=== PATIENT | female | born 1985 | race Caucasian/White ===

== ENCOUNTER 2016-03-16 12:24 | Emergency (ER) | payer MEDICAID, OTHER ==
--- NOTE | 2016-03-16 13:14 | ER Document Report ---
ED Medical Screen (RME) - General Chief Complaint: Anxiety Stated Complaint: DIZZY,HEART BEATING FAST Notes: 30 yo female with hx/o anxeity, IDDM with insulin pump, c/o funny feeling, vibrating in chest, not flashes, dizziness, increased heart rate. chest just feels funny. pt takes zoloft, xanax, vistaril, propanalol for anxiety. TRAVEL OUTSIDE OF THE [place] IN LAST 30 DAYS: No - Related Data Allergies/Adverse Reactions: Prostaglandins E1 Adverse Reaction (Intermediate, Verified 03/16/16 12:55) Generalized rash Prostaglandins E2 Adverse Reaction (Intermediate, Verified 03/16/16 12:55) Generalized rash Prostaglandins F2a Adverse Reaction (Intermediate, Verified 03/16/16 12:55) Generalized rash Sulfa (Sulfonamide Antibiotics) Adverse Reaction (Intermediate, Verified 12:55) Generalized rash sulfamethoxazole [From Bactrim] Adverse Reaction (Intermediate, Verified 12:55) Generalized rash trimethoprim [From Bactrim] Adverse Reaction (Intermediate, Verified 03/16/16 12 :55) Generalized rash Past Medical History - Social History Chew tobacco use (# tins/day): No Frequency of alcohol use: None Drug Abuse: None - Past Medical History Cardiac Medical History: Reports: Hx Hypercholesterolemia, Hx Hypertension Endocrine Medical History: Reports: Hx Diabetes Mellitus Type 1 Musculoskeltal Medical History: Reports Hx Arthritis Psychiatric Medical History: Reports: Hx Anxiety, Hx Depression Past Surgical History: Reports: Hx Adenoidectomy, Hx Oral Surgery, Hx Tonsillectomy - Immunizations Immunizations up to date: Yes Hx Diphtheria, Pertussis, Tetanus Vaccination: Yes Physical Exam - Vital signs Vitals: Temp Pulse Resp BP Pulse Ox 98.4 F 81 20 117/80 100 03/16/16 12:54 03/16/16 12:54 03/16/16 12:54 03/16/16 12:54 03/16/16 12:54 Course - Vital Signs Vital signs: Temp Pulse Resp BP Pulse Ox 98.4 F 81 20 117/80 100 03/16/16 12:54 03/16/16 12:54 03/16/16 12:54 03/16/16 12:54 03/16/16 12:54 Doctor's Discharge - Discharge Instructions: Anxiety ([facility])
[2016-03-16 13:45] LABS: ABSOLUTE BASOPHILS # (AUTO) 0.1 10^3/uL (0.0-0.2); ABSOLUTE EOSINOPHILS # (AUTO) 0.4 10^3/uL (0.0-0.6); ABSOLUTE LYMPHOCYTES (AUTO) 3.2 10^3/uL (0.5-4.7); ABSOLUTE MONOCYTES (AUTO) 0.6 10^3/uL (0.1-1.4); ABSOLUTE NEUT (AUTO) 4.3 10^3/uL (1.7-8.2); EOSINOPHILS % (AUTO) 4.2 % (0-6); HEMATOCRIT 42.5 % (36.0-47.0); HEMOGLOBIN 14.2 g/dL (12.0-15.5); HGB HCT DIFFERENCE 0.1; LYMPHOCYTES % (AUTO) 37.3 % (13-45); MEAN CORPUSCULAR HEMOGLOBIN 25.3 pg (27.0-33.4); MEAN CORPUSCULAR HGB CONC 33.4 g/dL (32.0-36.0); MEAN CORPUSCULAR VOLUME 76 fl (80-97); MONOCYTES % (AUTO) 7.3 % (3-13); RED BLOOD COUNT 5.61 10^6/uL (3.72-5.28); SEGMENTED NEUTROPHILS % (AUTO) 50.2 % (42-78); WHITE BLOOD COUNT 8.5 10^3/uL (4.0-10.5)
[2016-03-16 13:52] LABS: APPEARANCE,URINE CLEAR; BILIRUBIN,URINE NEGATIVE (NEGATIVE); GLUCOSE, URINE >=500 mg/dL (NEGATIVE); KETONES,URINE NEGATIVE (NEGATIVE); LEUKOCYTE ESTERASE,URINE NEGATIVE (NEGATIVE); NITRITE,URINE NEGATIVE (NEGATIVE); PROTEIN,URINE NEGATIVE (NEGATIVE); URINE SPECIFIC GRAVITY 1.011; UROBILINOGEN,URINE NEGATIVE mg/dL (<2.0)
[2016-03-16 14:12] LABS: ALANINE AMINOTRANSFERASE 32 U/L (9-52); ALKALINE PHOSPHATASE 63 U/L (38-126); ANION GAP 9 (5-19); ASPARTATE AMINO TRANSFERASE 19 U/L (14-36); BILIRUBIN,TOTAL 0.4 mg/dL (0.2-1.3); BLOOD UREA NITROGEN 20 mg/dL (7-20); CALCIUM 9.3 mg/dL (8.4-10.2); CARBON DIOXIDE 25 mmol/L (22-30); CHLORIDE 99 mmol/L (98-107); CREATININE RESULT 0.66 mg/dL (0.52-1.25); GLUCOSE 295 mg/dL (75-110); POTASSIUM 4.8 mmol/L (3.6-5.0); SODIUM 132.7 mmol/L (137-145); TOTAL PROTEIN 6.5 g/dL (6.3-8.2)
[2016-03-16] MEDS ORDERED: ALBUTEROL SULFATE 0.083% NEB 2.5 MG/3 ML AMPUL NEB ONE (15:42)
--- NOTE | 2016-03-16 15:43 | EKG REPORT ---
SEVERITY:- NORMAL ECG - SINUS RHYTHM : Confirmed by: Kim Clemons 16-Mar-2016 15:42:56
[2016-03-16 16:22] LABS: CREATINE KINASE MB 0.53 ng/mL (<4.55); TROPONIN I < 0.012 ng/mL
--- NOTE | 2016-03-16 16:39 | ER Document Report ---
ED General - General Chief Complaint: Anxiety Stated Complaint: DIZZY,HEART BEATING FAST Time seen by provider: 16:00 Mode of Arrival: Ambulatory Information source: Patient Notes: 30 yo diabetic hx anxiety female c/o multiple symptoms but the one that brought her in was the pulsating/rattling left periscapular back pain that radiated around her body to the left chest (not thgough her body) It began about 11 am after taekwondo this am. Under alot of strwaa because she is going through divorce. Also c/o head congestion, jitters, thinks she may be has chest congestion. TRAVEL OUTSIDE OF THE [place] IN LAST 30 DAYS: No - HPI Onset: This morning Onset/Duration: Sudden - Related Data Allergies/Adverse Reactions: Prostaglandins E1 Adverse Reaction (Intermediate, Verified 03/16/16 12:55) Generalized rash Prostaglandins E2 Adverse Reaction (Intermediate, Verified 03/16/16 12:55) Generalized rash Prostaglandins F2a Adverse Reaction (Intermediate, Verified 03/16/16 12:55) Generalized rash Sulfa (Sulfonamide Antibiotics) Adverse Reaction (Intermediate, Verified 12:55) Generalized rash sulfamethoxazole [From Bactrim] Adverse Reaction (Intermediate, Verified 12:55) Generalized rash trimethoprim [From Bactrim] Adverse Reaction (Intermediate, Verified 03/16/16 12 :55) Generalized rash Past Medical History - General Information source: Patient - Social History Smoking Status: Current Every Day Smoker Chew tobacco use (# tins/day): No Frequency of alcohol use: None Drug Abuse: None Lives with: Family Family History: DM, Hyperlipidemia, Hypertension, Malignancy, Thyroid Disfunction Patient has suicidal ideation: No Patient has homicidal ideation: No - Past Medical History Cardiac Medical History: Reports: Hx Hypercholesterolemia, Hx Hypertension Endocrine Medical History: Reports: Hx Diabetes Mellitus Type 1 Musculoskeltal Medical History: Reports Hx Arthritis Psychiatric Medical History: Reports: Hx Anxiety, Hx Depression Past Surgical History: Reports: Hx Adenoidectomy, Hx Oral Surgery, Hx Tonsillectomy - Immunizations Immunizations up to date: Yes Hx Diphtheria, Pertussis, Tetanus Vaccination: Yes Review of Systems - Review of Systems Constitutional: No symptoms reported EENT: See HPI Cardiovascular: No symptoms reported Respiratory: See HPI Gastrointestinal: No symptoms reported Genitourinary: No symptoms reported Female Genitourinary: No symptoms reported Musculoskeletal: No symptoms reported Skin: No symptoms reported Hematologic/Lymphatic: No symptoms reported Neurological/Psychological: No symptoms reported Physical Exam - Vital signs Vitals: Temp Pulse Resp BP Pulse Ox 98.4 F 81 20 117/80 100 03/16/16 12:54 03/16/16 12:54 03/16/16 12:54 03/16/16 12:54 03/16/16 12:54 Interpretation: Normal - General General appearance: Appears well, Alert, Anxious In distress: None - HEENT Head: Normocephalic, Atraumatic Eyes: Normal Pupils: PERRL Tympanic membrane: Normal Pharynx: Normal Neck: Supple. No: Lymphadenopathy - Respiratory Respiratory status: No respiratory distress Chest status: Nontender Breath sounds: Normal Chest palpation: Normal - Cardiovascular Rhythm: Regular Heart sounds: Normal auscultation Murmur: No - Abdominal Inspection: Normal Distension: No distension Bowel sounds: Normal Tenderness: Nontender Organomegaly: No organomegaly - Back Back: Normal, Tender - left periscapular muscles. No: CVA tenderness - Extremities General upper extremity: Normal inspection, Nontender, Normal color, Normal ROM , Normal temperature General lower extremity: Normal inspection, Nontender, Normal color, Normal ROM , Normal temperature, Normal weight bearing. No: Buster's sign - Neurological Neuro grossly intact: Yes Cognition: Normal Orientation: AAOx4 [place] Coma Scale Eye Opening: Spontaneous Wendy Coma Scale Verbal: Oriented Wendy Coma Scale Motor: Obeys Commands Wendy Coma Scale Total: 15 Speech: Normal Motor strength normal: LUE, RUE, LLE, RLE Sensory: Normal - Psychological Associated symptoms: Normal affect, Normal mood - Skin Skin Temperature: Warm Skin Moisture: Dry Skin Color: Normal Skin irregularity: negative: Rash Course - Re-evaluation Re-evalutation: 03/16/16 16:33 Blood and urine is due to menses, chest x-ray is negative, EKG normal sinus rhythm, glucose is 295 but she took insulin so she checked it and it is coming down, CBC is normal 03/16/16 16:34 Patient is asking for a albuterol metered-dose inhaler prescription. thinks that it may help. alb neb ordered which is already helping. - Vital Signs Vital signs: Temp Pulse Resp BP Pulse Ox 97.8 F 75 16 100/75 100 03/16/16 16:59 03/16/16 16:59 03/16/16 16:59 03/16/16 16:59 03/16/16 16:59 - Laboratory Result Diagrams: 03/16/16 13:15 03/16/16 13:15 Laboratory results interpreted by me: 03/16/16 03/16/16 03/16/16 13:15 13:15 13:20 RBC 5.61 H MCV 76 L MCH 25.3 L Sodium 132.7 L Glucose 295 H Urine Glucose (UA) >=500 H Urine Blood LARGE H Discharge - Discharge Clinical Impression: Bronchitis, Anxiety, Upper back pain on left side Diabetes Qualifiers: Diabetes mellitus type: type 1 Diabetes mellitus complication status: without complication Qualified Code(s): E10.9 - Type 1 diabetes mellitus without complications Condition: Good Disposition: HOME, SELF-CARE Instructions: Anxiety ([facility]), Bronchitis ([facility]), Inhaled Bronchodilators ([facility]) Additional Instructions: to er if worse Monitor your glucose carefully Prescriptions: Albuterol Sulfate [Proair HFA Inhalation Aerosol 8.5 gm MDI] 2 puff IH Q3HP PRN #1 [email or web address] PRN Reason: Forms: Return to Work Referrals: ANGELA GREEN MD [Primary Care Provider] - Follow up as needed
[2016-03-16 17:01] VITALS: BP 100/75
== END 2016-03-16 17:00 | disposition home or self-care (01) ==
LOC: ER 12:24
DX: J40 Bronchitis, not specified as acute or chronic (principal); M54.89 Other dorsalgia; E10.9 Type 1 diabetes mellitus without complications; F41.9 Anxiety disorder, unspecified; R42 Dizziness and giddiness; I10 Essential (primary) hypertension; E78.00 Pure hypercholesterolemia, unspecified; Z88.2 Allergy status to sulfonamides; Z88.3 Allergy status to other anti-infective agents
CPT/HCPCS: 36415; 71020; 80053; 81001; 82550; 82553; 84484; 85025; 93005; 93010; 94640; 99284

== ENCOUNTER 2016-03-23 06:17 | Emergency (ER) | payer MEDICAID ==
--- NOTE | 2016-03-23 08:41 | ER Document Report ---
ED General - General Mode of Arrival: Ambulatory Information source: Patient Notes: 30-year-old female presents with complaints of muscle aches of 5 day duration. Patient notes it stems from her neck goes down bilateral arms. Denies any neurological deficits except for a numbness sensation and pain. Patient denies any trauma. Patient is here because her son had any earaches morning Patient has been taking naproxen over the past 5 days with minimal relief TRAVEL OUTSIDE OF THE [place] IN LAST 30 DAYS: No - HPI Onset: Last week Onset/Duration: Persistent Quality of pain: Achy Severity: Mild Pain Level: 1 Associated symptoms: Body/muscle aches Exacerbated by: Movement Relieved by: Denies Similar symptoms previously: No Recently seen / treated by doctor: No - Related Data Allergies/Adverse Reactions: Prostaglandins E1 Adverse Reaction (Intermediate, Verified 03/16/16 12:55) Generalized rash Prostaglandins E2 Adverse Reaction (Intermediate, Verified 03/16/16 12:55) Generalized rash Prostaglandins F2a Adverse Reaction (Intermediate, Verified 03/16/16 12:55) Generalized rash Sulfa (Sulfonamide Antibiotics) Adverse Reaction (Intermediate, Verified 12:55) Generalized rash sulfamethoxazole [From Bactrim] Adverse Reaction (Intermediate, Verified 12:55) Generalized rash trimethoprim [From Bactrim] Adverse Reaction (Intermediate, Verified 03/16/16 12 :55) Generalized rash Past Medical History - Social History Smoking Status: Never Smoker Cigarette use (# per day): No Chew tobacco use (# tins/day): No Smoking Education Provided: No Family History: DM, Hyperlipidemia, Hypertension, Malignancy, Thyroid Disfunction - Past Medical History Cardiac Medical History: Reports: Hx Hypercholesterolemia, Hx Hypertension Endocrine Medical History: Reports: Hx Diabetes Mellitus Type 1 Musculoskeltal Medical History: Reports Hx Arthritis Psychiatric Medical History: Reports: Hx Anxiety, Hx Depression Past Surgical History: Reports: Hx Adenoidectomy, Hx Oral Surgery, Hx Tonsillectomy - Immunizations Immunizations up to date: Yes Hx Diphtheria, Pertussis, Tetanus Vaccination: Yes Review of Systems - Review of Systems Notes: REVIEW OF SYSTEMS: CONSTITUTIONAL : Denies fever, chills, or sweats. Denies recent illness. EENT: Denies eye, ear, throat, or mouth pain or symptoms. Denies nasal or sinus congestion or discharge. Denies throat, tongue, or mouth swelling or difficulty swallowing. CARDIOVASCULAR: Denies chest pain. Denies palpitations or racing or irregular heart beat. Denies ankle edema. RESPIRATORY: Denies cough, cold, or chest congestion. Denies shortness of breath, difficulty breathing, or wheezing. GASTROINTESTINAL: Denies abdominal pain or distention. Denies nausea, vomiting , or diarrhea. Denies blood in vomitus, stools, or per rectum. Denies black, tarry stools. Denies constipation. GENITOURINARY: Denies difficulty urinating, painful urination, burning, frequency, blood in urine, or discharge. FEMALE GENITOURINARY: Denies vaginal bleeding, heavy or abnormal periods, irregular periods. Denies vaginal discharge or odor. MUSCULOSKELETAL: Admits to back pain SKIN: Denies rash, lesions or sores. HEMATOLOGIC : Denies easy bruising or bleeding. LYMPHATIC: Denies swollen, enlarged glands. NEUROLOGICAL: Denies confusion or altered mental status. Denies passing out or loss of consciousness. Denies dizziness or lightheadedness. Denies headache. Denies weakness or paralysis or loss of use of either side. Denies problems with gait or speech. Denies sensory loss, numbness, or tingling. Denies seizures. PSYCHIATRIC: Denies anxiety or stress. Denies depression, suicidal ideation, or homicidal ideation. ALL OTHER SYSTEMS REVIEWED AND NEGATIVE. Dictation was performed using [employer] voice recognition software PHYSICAL EXAMINATION: GENERAL: Well-appearing, well-nourished and in no acute distress. HEAD: Atraumatic, normocephalic. EYES: Pupils equal round and reactive to light, extraocular movements intact, conjunctiva are normal. ENT: Nares patent, oropharynx clear without exudates. Moist mucous membranes. NECK: Normal range of motion, supple without lymphadenopathy LUNGS: Breath sounds clear to auscultation bilaterally and equal. No wheezes rales or rhonchi. HEART: Regular rate and rhythm without murmurs ABDOMEN: Soft, nontender, nondistended abdomen. No guarding, no rebound. No masses appreciated. Female : deferred Musculoskeletal: Tenderness on palpation of the cervical region, no midline tenderness. No numbness noted no weakness noted NEUROLOGICAL: Cranial nerves grossly intact. Normal speech, normal gait. Normal sensory, motor exams PSYCH: Normal mood, normal affect. SKIN: Warm, Dry, normal turgor, no rashes or lesions noted. Course - Re-evaluation Re-evalutation: 03/23/16 08:40 Patient will be treated with steroids, has been instructed on the use of it with her diabetes. Patient is otherwise stable for discharge After performing a Medical Screening Examination, I estimate there is LOW risk for INTRACRANIAL HEMORRHAGE, UNSTABLE SPINE FRACTURE, CENTRAL CORD SYNDROME, CAUDA EQUINA, THORACIC AORTIC DISSECTION, PNEUMOTHORAX, PERFORATED BOWEL, RUPTURED ABDOMINAL AORTIC ANEURYSM, ACUTE TENDON RUPTURE, COMPARTMENT SYNDROME, or OPEN FRACTURE, thus I consider the discharge disposition reasonable. Also, there is no evidence or peritonitis, sepsis, or toxicity. The patient and I have discussed the diagnosis and risks, and we agree with discharging home to follow-up with their primary doctor with the understanding that symptoms and presentations can change. We also discussed returning to the Emergency Department immediately if new or worsening symptoms occur. We have discussed the symptoms which are most concerning (e.g., bloody stool, fever, changing or worsening pain, vomiting) that necessitate immediate return. Discharge - Discharge Clinical Impression: Strain of neck muscle Qualifiers: Encounter type: initial encounter Qualified Code(s): S16.1XXA - Strain of muscle, fascia and tendon at neck level, initial encounter Pain of upper extremity Qualifiers: Laterality: bilateral Qualified Code(s): M79.601 - Pain in right arm; M79.602 - Pain in left arm Condition: Stable Disposition: HOME, SELF-CARE Additional Instructions: Patient was discharged on paper charting given follow with primary care physician and steroids pressure to return precautions provided
== END 2016-03-23 07:30 | disposition home or self-care (01) ==
LOC: ER 06:17
DX: S16.1XXA Strain of muscle, fascia and tendon at neck level, initial encounter (principal); X58.XXXA Exposure to other specified factors, initial encounter; M79.1 Myalgia; M54.9 Dorsalgia, unspecified; R20.0 Anesthesia of skin; I10 Essential (primary) hypertension; E10.9 Type 1 diabetes mellitus without complications
CPT/HCPCS: 99283

== ENCOUNTER 2016-04-04 10:42 | Emergency (ER) | payer MEDICAID ==
--- NOTE | 2016-04-04 11:05 | ER Document Report ---
ED Medical Screen (RME) - General Chief Complaint: Cold Symptoms Stated Complaint: FEVER Time seen by provider: 11:03 Mode of Arrival: Ambulatory Information source: Patient Notes: 30-year-old female presents to ED for cough, congestion, headache fever, body aches, and nausea with hot and cold flashes for 3 days her doctor could not get her in today is the reason she came in this morning. Type I diabetic Last menstrual period 03/15/2016 I have greeted and performed a rapid initial assessment of this patient. A comprehensive ED assessment and evaluation of the patient, analysis of test results and completion of medical decision making process will be conducted by an additional ED providers. TRAVEL OUTSIDE OF THE [place] IN LAST 30 DAYS: No - Related Data Allergies/Adverse Reactions: Prostaglandins E1 Adverse Reaction (Intermediate, Verified 03/16/16 12:55) Generalized rash Prostaglandins E2 Adverse Reaction (Intermediate, Verified 03/16/16 12:55) Generalized rash Prostaglandins F2a Adverse Reaction (Intermediate, Verified 03/16/16 12:55) Generalized rash Sulfa (Sulfonamide Antibiotics) Adverse Reaction (Intermediate, Verified 12:55) Generalized rash sulfamethoxazole [From Bactrim] Adverse Reaction (Intermediate, Verified 12:55) Generalized rash trimethoprim [From Bactrim] Adverse Reaction (Intermediate, Verified 03/16/16 12 :55) Generalized rash Past Medical History - Past Medical History Cardiac Medical History: Reports: Hx Hypercholesterolemia, Hx Hypertension Endocrine Medical History: Reports: Hx Diabetes Mellitus Type 1 Musculoskeltal Medical History: Reports Hx Arthritis Psychiatric Medical History: Reports: Hx Anxiety, Hx Depression Past Surgical History: Reports: Hx Adenoidectomy, Hx Oral Surgery, Hx Tonsillectomy - Immunizations Immunizations up to date: Yes Hx Diphtheria, Pertussis, Tetanus Vaccination: Yes
[2016-04-04] MEDS ORDERED: ONDANSETRON 4 MG TAB.RAPDIS PO ONE (11:09)
[2016-04-04 11:48] LABS: ABSOLUTE BASOPHILS # (AUTO) 0.1 10^3/uL (0.0-0.2); ABSOLUTE EOSINOPHILS # (AUTO) 0.4 10^3/uL (0.0-0.6); ABSOLUTE LYMPHOCYTES (AUTO) 2.7 10^3/uL (0.5-4.7); ABSOLUTE MONOCYTES (AUTO) 0.4 10^3/uL (0.1-1.4); ABSOLUTE NEUT (AUTO) 3.7 10^3/uL (1.7-8.2); BASOPHILS % (AUTO) 0.7 % (0-2); EOSINOPHILS % (AUTO) 5.6 % (0-6); HEMATOCRIT 42.9 % (36.0-47.0); HEMOGLOBIN 13.3 g/dL (12.0-15.5); LYMPHOCYTES % (AUTO) 37.1 % (13-45); MEAN CORPUSCULAR HEMOGLOBIN 24.5 pg (27.0-33.4); MEAN CORPUSCULAR VOLUME 79 fl (80-97); RED BLOOD COUNT 5.43 10^6/uL (3.72-5.28); RED CELL DISTRIBUTION WIDTH 14.6 % (11.5-14.0); SEGMENTED NEUTROPHILS % (AUTO) 50.6 % (42-78); WHITE BLOOD COUNT 7.2 10^3/uL (4.0-10.5)
[2016-04-04 11:51] LABS: APPEARANCE,URINE CLEAR; BILIRUBIN,URINE NEGATIVE (NEGATIVE); GLUCOSE, URINE >=500 mg/dL (NEGATIVE); KETONES,URINE NEGATIVE (NEGATIVE); LEUKOCYTE ESTERASE,URINE TRACE (NEGATIVE); NITRITE,URINE NEGATIVE (NEGATIVE); PROTEIN,URINE NEGATIVE (NEGATIVE); URINE SPECIFIC GRAVITY 1.024; UROBILINOGEN,URINE NEGATIVE mg/dL (<2.0)
[2016-04-04 12:12] LABS: ALANINE AMINOTRANSFERASE 24 U/L (9-52); ALKALINE PHOSPHATASE 78 U/L (38-126); ANION GAP 11 (5-19); ASPARTATE AMINO TRANSFERASE 17 U/L (14-36); BILIRUBIN,TOTAL 0.5 mg/dL (0.2-1.3); BLOOD UREA NITROGEN 13 mg/dL (7-20); CALCIUM 9.3 mg/dL (8.4-10.2); CARBON DIOXIDE 25 mmol/L (22-30); CHLORIDE 96 mmol/L (98-107); CREATININE RESULT 0.71 mg/dL (0.52-1.25); SODIUM 131.8 mmol/L (137-145); TOTAL PROTEIN 6.5 g/dL (6.3-8.2)
[2016-04-04] MEDS ORDERED: IBUPROFEN 800 MG TABLET PO ONE ×2 (12:14→13:08)
[2016-04-04 12:21] LABS: GLUCOSE 487 mg/dL (75-110)
[2016-04-04] MEDS ORDERED: ALBUTEROL SULFATE 0.083% NEB 2.5 MG/3 ML AMPUL NEB ONE (12:58)
[2016-04-04] MEDS ORDERED: DIPHENHYDRAMINE HCL 25 MG CAPSULE PO ONE (13:08)
[2016-04-04] MEDS ORDERED: METOCLOPRAMIDE HCL 10 MG TABLET PO ONE (13:08)
[2016-04-04] MEDS ORDERED: ALBUTEROL SULFATE HFA (90 MCG/PUFF) 8 GM MDI (1 MDI/ER DISP) IH ONE (13:08)
--- NOTE | 2016-04-04 13:24 | ER Document Report ---
ED Flu Like - General Chief Complaint: Flu Symptoms Stated Complaint: FEVER Mode of Arrival: Ambulatory Notes: Patient is a 30-year-old female presents emergency Department complaining of chest, nasal congestion with ear pressure, nonproductive cough for the past 5 days, fever and tension headache for the past 2 days. Generalized body aches. She hasn't been really taking anything [id number]. States she did that afebrile here at 97.8. Otherwise past medical history significant for type I diabetes. Social history significant for a 4 pack years TRAVEL OUTSIDE OF THE [place] IN LAST 30 DAYS: No - Related Data Allergies/Adverse Reactions: Prostaglandins E1 Adverse Reaction (Intermediate, Verified 03/16/16 12:55) Generalized rash Prostaglandins E2 Adverse Reaction (Intermediate, Verified 03/16/16 12:55) Generalized rash Prostaglandins F2a Adverse Reaction (Intermediate, Verified 03/16/16 12:55) Generalized rash Sulfa (Sulfonamide Antibiotics) Adverse Reaction (Intermediate, Verified 12:55) Generalized rash sulfamethoxazole [From Bactrim] Adverse Reaction (Intermediate, Verified 12:55) Generalized rash trimethoprim [From Bactrim] Adverse Reaction (Intermediate, Verified 03/16/16 12 :55) Generalized rash Past Medical History - General Information source: Patient - Social History Smoking Status: Current Every Day Smoker Family History: DM, Hyperlipidemia, Hypertension, Malignancy, Thyroid Disfunction Patient has suicidal ideation: No Patient has homicidal ideation: No - Past Medical History Cardiac Medical History: Reports: Hx Hypercholesterolemia, Hx Hypertension Endocrine Medical History: Reports: Hx Diabetes Mellitus Type 1 Renal/ Medical History: Denies: Hx Peritoneal Dialysis Musculoskeltal Medical History: Reports Hx Arthritis Psychiatric Medical History: Reports: Hx Anxiety, Hx Depression Past Surgical History: Reports: Hx Adenoidectomy, Hx Oral Surgery, Hx Tonsillectomy - Immunizations Immunizations up to date: Yes Hx Diphtheria, Pertussis, Tetanus Vaccination: Yes Review of Systems - Review of Systems Constitutional: See HPI EENT: See HPI Cardiovascular: See HPI Respiratory: See HPI Gastrointestinal: No symptoms reported Genitourinary: No symptoms reported Female Genitourinary: No symptoms reported Musculoskeletal: See HPI Skin: No symptoms reported Hematologic/Lymphatic: No symptoms reported Neurological/Psychological: No symptoms reported Physical Exam - Vital signs Vitals: Temp Pulse Resp BP Pulse Ox 97.8 F 99 20 133/83 H 96 04/04/16 11:02 04/04/16 11:02 04/04/16 11:02 04/04/16 11:02 04/04/16 11:02 - Notes Notes: PHYSICAL EXAM GENERAL: Alert, interacts well. HEAD: Normocephalic, atraumatic. EYES: Pupils equal, round, and reactive to light. Extraocular movements intact. ENT: Sinus pressure b/l. Oral mucosa moist, tongue midline. NECK: Full range of motion. Supple. Trachea midline. LUNGS: B/l wheezes without rales, or rhonchi. No respiratory distress. HEART: Regular rate and rhythm. No murmurs, gallops, or rubs. ABDOMEN: Soft, nondistended, nontender. No guarding, rebound, or rigidity.. Bowel sounds present in all 4 quadrants. EXTREMITIES: Moves all 4 extremities spontaneously. No edema, radial and dorsalis pedis pulses 2/4 bilaterally. No cyanosis. NEUROLOGICAL: Alert and oriented x3. Normal speech. PSYCH: Normal affect, normal mood. SKIN: Warm, dry, normal turgor. No rashes or lesions noted. Course - Re-evaluation Re-evalutation: 04/04/16 13:23 Patient is a 30-year-old female who is hemodynamically stable, no acute distress and afebrile. Patient does not have a history of asthma but given her recent cough likely acute bronchitis. We'll treat with albuterol here in manage her headache is by mouth medication. Upon reexamination, states her breathing and headache have improved. Wheezing has resolved. D/w patient to f/u with PCP in 1-2 PRN - Vital Signs Vital signs: Temp Pulse Resp BP Pulse Ox 97.8 F 99 20 133/83 H 96 04/04/16 11:02 04/04/16 11:02 04/04/16 11:56 04/04/16 11:02 04/04/16 11:02 - Laboratory Result Diagrams: 04/04/16 11:20 04/04/16 11:20 Laboratory results interpreted by me: 04/04/16 04/04/16 04/04/16 11:20 11:20 11:20 RBC 5.43 H MCV 79 L MCH 24.5 L MCHC 31.0 L RDW 14.6 H Sodium 131.8 L Chloride 96 L Glucose 487 H* Urine Glucose (UA) >=500 H Ur Leukocyte Esterase TRACE H Discharge - Discharge Clinical Impression: Bronchitis Headache Qualifiers: Headache type: tension-type Headache chronicity pattern: acute headache Intractability: intractable Qualified Code(s): G44.201 - Tension-type headache, unspecified, intractable Condition: Good Disposition: HOME, SELF-CARE Instructions: Acetaminophen Additional Instructions: Bronchitis with Bronchospasm (Wheezing) You have bronchitis with bronchospasm (wheezing). Sometimes people develop wheezing with a chest cold. This occurs either because of an underlying tendency toward asthma or because the virus itself irritates the bronchial tubes. This irritation causes cough, shortness of breath, and wheezing. Emergency treatment of bronchospasm may include adrenaline shots or bronchodilator aerosol. You may feel lightheaded and have a rapid pulse for an hour or two. Rest and get plenty of fluids. At home, we'll treat you with a bronchodilator inhaler. Corticosteroids may be required for some patients. Until you recover, avoid chemical fumes, dusts, pollens, and exercising in very cold or dry air. If you smoke, stop now! Most cases of bronchitis get better without antibiotics. We prescribe antibiotics when we believe bacteria are damaging your airways, or if there's high risk the bronchitis will worsen into pneumonia. Increase your fluid intake. A cool mist humidifier may make your lungs more comfortable. An expectorant (cough medicine that loosens phlegm) can help. Repeated episodes of bronchitis and bronchospasm may result in lung damage -- for example, chronic bronchitis, recurrent pneumonias, or emphysema. If you develop a fever, increased wheezing, chest pain, or severe shortness of breath, you should contact the doctor immediately. Prescriptions: Ondansetron HCl [Zofran 4 mg Tablet] 1 - 2 tab PO Q4HP PRN #15 tablet PRN Reason: Albuterol Sulfate [Ventolin HFA MDI 18 GM] 1 - 2 puff IH Q4H PRN #1 mdi PRN Reason: Forms: Return to Work Referrals: SANTOS TOMAS PA-C [Primary Care Provider] - Follow up as needed
[2016-04-04 14:29] VITALS: BP 127/84
== END 2016-04-04 14:25 | disposition home or self-care (01) ==
LOC: ER 10:42
DX: G44.201 Tension-type headache, unspecified, intractable (principal); J40 Bronchitis, not specified as acute or chronic; R50.9 Fever, unspecified; R09.81 Nasal congestion; R05 Cough; R51 Headache; F17.210 Nicotine dependence, cigarettes, uncomplicated
CPT/HCPCS: 99283; 36415; 82962; 84703; 85025; 80053; 81001; 83605; J3490 ×4; S0119

== ENCOUNTER → 2016-04-12 | Outpatient (CLI) | payer MEDICAID | LOC: OD 08:30 | PROVIDERS: ATTEND Physician Assistant | DX: M54.2 Cervicalgia (principal); M54.5 Low back pain | CPT/HCPCS: 72050; 72110 ==

== ENCOUNTER → 2016-06-02 | Outpatient (CLI) | payer MEDICAID | LOC: OD 09:31 | PROVIDERS: ATTEND Physician Assistant | DX: M79.644 Pain in right finger(s) (principal) ==

== ENCOUNTER 2016-11-18 16:17 | Emergency (ER) | payer MEDICAID ==
[2016-11-18] MEDS ORDERED: IBUPROFEN 800 MG TABLET PO ONE (17:19)
--- NOTE | 2016-11-18 17:24 | ER Document Report ---
ED General - General Chief Complaint: Back Pain Stated Complaint: PAIN IN BACK RIGHT ARM AND LEG Time Seen by Provider: 11/18/16 16:56 Mode of Arrival: Ambulatory Information source: Patient Notes: 31-year-old female presents to ED for complaint of lower back pain radiating down her legs 2 week. She states she has a history of degenerative disc days bulging disc and spondylosis. She also has a history of sciatica going down the right leg. She states she also has a history of carpal tunnel and a fracture to the right hand and May but when I look at the x-ray in the computer it is negative. She states that her MD found a fracture in the hand on the x-ray even though the x-ray was read as negative. She states she has nerve pain in her hand that goes up her arm and she called the orthopedic doctor and they said she needed to come to the emergency room to be sure there was no clot in her arm. She does smoke she is not on control and has not been on any trips and has not had no other injuries to the hand. TRAVEL OUTSIDE OF THE [place] IN LAST 30 DAYS: No - HPI Onset: Other - Patient has chronic pain to the arm, back, and leg Onset/Duration: Persistent Quality of pain: Sharp, Throbbing Severity: Moderate Pain Level: 4 Associated symptoms: Other - Chronic back pain with chronic sciatic pain. She states she also has chronic carpal tunnel pain. She states the pain in her hand is much worse today and she called the doctor and they told her she might have a clot she needed to come to the emergency room right away. Exacerbated by: Movement, Walking Relieved by: Denies Similar symptoms previously: Yes Recently seen / treated by doctor: Yes - Related Data Allergies/Adverse Reactions: Prostaglandins E1 Adverse Reaction (Intermediate, Verified 11/18/16 16:25) Generalized rash Prostaglandins E2 Adverse Reaction (Intermediate, Verified 11/18/16 16:25) Generalized rash Prostaglandins F2a Adverse Reaction (Intermediate, Verified 11/18/16 16:25) Generalized rash Sulfa (Sulfonamide Antibiotics) Adverse Reaction (Intermediate, Verified 16:25) Generalized rash sulfamethoxazole [From Bactrim] Adverse Reaction (Intermediate, Verified 16:25) Generalized rash trimethoprim [From Bactrim] Adverse Reaction (Intermediate, Verified 09/08/17 16 :25) Generalized rash Past Medical History - General Information source: Patient - Social History Smoking Status: Current Every Day Smoker Cigarette use (# per day): Yes - 5-10 cigarettes a day Chew tobacco use (# tins/day): No Smoking Education Provided: Yes - Less than 2 minutes Frequency of alcohol use: None Drug Abuse: None Occupation: Student Lives with: Friend Family History: DM, Hyperlipidemia, Hypertension, Malignancy, Thyroid Disfunction. denies: Arthritis, CAD, COPD, CVA Patient has suicidal ideation: No Patient has homicidal ideation: No - Past Medical History Cardiac Medical History: Reports: Hx Hypercholesterolemia Pulmonary Medical History: Reports: None EENT Medical History: Reports: None Neurological Medical History: Reports: None Endocrine Medical History: Reports: Hx Diabetes Mellitus Type 1 Renal/ Medical History: Reports: None Malignancy Medical History: Reports: None GI Medical History: Reports: None Musculoskeltal Medical History: Reports Hx Arthritis, Reports Hx Musculoskeletal Deformity - Degenerative disc sciatica chronic back pain spondylosis carpal tunnel, Reports Hx Musculoskeletal Trauma Skin Medical History: Reports None Psychiatric Medical History: Reports: Hx Anxiety, Hx Depression Traumatic Medical History: Reports: None Infectious Medical History: Reports: None Past Surgical History: Reports: Hx Adenoidectomy, Hx Gynecologic Surgery - E sure, Hx Oral Surgery - [place] teeth, Hx Tonsillectomy - Immunizations Immunizations up to date: Yes Hx Diphtheria, Pertussis, Tetanus Vaccination: Yes Review of Systems - Review of Systems Constitutional: No symptoms reported EENT: No symptoms reported Cardiovascular: No symptoms reported Respiratory: No symptoms reported Gastrointestinal: No symptoms reported Genitourinary: No symptoms reported Female Genitourinary: No symptoms reported Musculoskeletal: Back pain, Muscle pain, Muscle stiffness, Other - Right arm pain right wrist pain both of which are chronic. Patient states she went to the MD's office and they told her that she needed to have a Doppler done to rule out a DVT in her right arm Skin: No symptoms reported Hematologic/Lymphatic: No symptoms reported Neurological/Psychological: No symptoms reported -: Yes All other systems reviewed and negative Physical Exam - Vital signs Vitals: Temp Pulse Resp BP Pulse Ox 99.1 F 93 18 127/87 H 97 11/18/16 16:26 11/18/16 16:26 11/18/16 16:26 11/18/16 16:26 11/18/16 16:26 Interpretation: Normal - General General appearance: Appears well, Alert - HEENT Head: Normocephalic, Atraumatic Eyes: Normal Pupils: PERRL - Respiratory Respiratory status: No respiratory distress Chest status: Nontender Breath sounds: Normal Chest palpation: Normal - Cardiovascular Rhythm: Regular Heart sounds: Normal auscultation Murmur: No - Abdominal Inspection: Normal Distension: No distension Bowel sounds: Normal Tenderness: Nontender Organomegaly: No organomegaly - Back Back: Normal, Tender - paraspinal pain as well as bilateral lower back bilateral buttocks worse on the right radiating down the right leg. No: Deformity/step-off, CVA tenderness, Vertebra tenderness, Scars, Scoliosis, Wounds - Extremities General upper extremity: Normal inspection, Normal color, Normal ROM, Normal temperature General lower extremity: Normal inspection, Nontender, Normal color, Normal ROM , Normal temperature, Normal weight bearing. No: Buster's sign Shoulder: Tender. No: Deformity, Dislocation, Ecchymosis, Instability, Laceration, Limited ROM Arm: Tender. No: Abrasion, Deformity, Ecchymosis, Instability, Laceration Elbow: Tender. No: Abrasion, Deformity, Dislocation, Ecchymosis, Instability, Joint effusion, Laceration, Limited ROM, Swollen bursa Forearm: Tender. No: Abrasion, Deformity, Ecchymosis, Instability, Laceration Wrist: Tender. No: Abrasion, Axial load of thumb pain, Deformity, Dislocation, Ecchymosis, Instability, Laceration, Limited ROM, Navicular tenderness Hand: Tender, No evidence of human bite, No evidence of FB. No: Dislocation, Ecchymosis, Swelling, Tendon deficit - Neurological Neuro grossly intact: Yes Cognition: Normal Orientation: AAOx4 Wendy Coma Scale Eye Opening: Spontaneous Wendy Coma Scale Verbal: Oriented [place] Coma Scale Motor: Obeys Commands Wendy Coma Scale Total: 15 Speech: Normal Motor strength normal: LUE, RUE, LLE, RLE Sensory: Normal - Psychological Associated symptoms: Normal affect, Normal mood - Skin Skin Temperature: Warm Skin Moisture: Dry Skin Color: Normal Course - Re-evaluation Re-evalutation: 11/18/16 21:02 Discussed Doppler results with patient patient was treated with ibuprofen ice and Lidoderm patch. Patient was discharged home with a prescription for Flexeril. Patient states she has naproxen and ibuprofen at home and does not need a prescription for either. Patient was reinstructed on use of ice warm packs and back exercises to help with her chronic pain. Patient states she has a referral for pain management but has not gotten in to see them yet. Patient to follow-up with her primary doctor - Vital Signs Vital signs: Temp Pulse Resp BP Pulse Ox 99.1 F 93 18 127/87 H 97 11/18/16 16:26 11/18/16 16:26 11/18/16 16:26 11/18/16 16:26 11/18/16 16:26 - Diagnostic Test Radiology reviewed: Image reviewed, Reports reviewed Discharge - Discharge Clinical Impression: Chronic back pain greater than 3 months duration, Right arm pain Sciatica Qualifiers: Laterality: right Qualified Code(s): M54.31 - Sciatica, right side Condition: Stable Disposition: HOME, SELF-CARE Instructions: Stretching Exercises for the Back ([facility]) Additional Instructions: Chronic Pain Control Stress, inactivity, and depression make pain more severe regardless of the cause of the pain. Stress and poor physical condition can cause pain such as headaches and backache. Relaxation: Rest in a quiet place with your eyes closed for 20 minutes twice daily. Concentrate on a pleasant image, or simply "feel" your breathing. Clear your mind. Stress management: Deal with your "stressors." Either take action, or eliminate the stressor from your life. Don't let things hang over you. Accept those things you can't change. Nutrition: Eat small, balanced meals -- don't skip, don't overeat. Meals should be high-carbohydrate, low-sugar, low-fat. Exercise: Exercise helps painful conditions and eases stress. Get 30 minutes of moderate exercise, five days a week. Do an activity that does not flare your pain. Precautions: Pain which continues to disrupt daily activities, or which changes in nature, requires a medical evaluation. Pain Clinic referral is available. We do not manage chronic pain in the Emergency Department. We will try to appropriately help you through an acute flare of your chronic painful condition , but for on-going chronic pain that does not improve, you will need to see your private doctor or painting machine operator. We do not provide repeated medication management of chronic painful conditions. If you wish, we can provide the name of local pain management physicians. Chronic Back Pain Chronic back pain (pain persisting longer than three months) is a common problem. A medical evaluation can look for herniated disc, arthritis, osteoporosis, tumors, and infections. But at least half the time, there's no obvious treatable cause. Anxiety and depression tend to worsen back pain. Ibuprofen or other anti-inflammatory medicine can help. A heating pad, used for 15-20 minutes at a time, can ease pain. For this type of back pain, narcotic medicines should be avoided. Muscle relaxers are rarely helpful unless you're having spasms. Activity is important. Find an aerobic exercise program that your back can tolerate. Too much rest makes back pain worse. Specific back exercises are usually prescribed to strengthen the back and abdominal muscles. Often, a physical therapist can help. Avoid heavy lifting, working while bent over, or standing with both knees straight. Most back pain patients do better with a firm mattress. If new symptoms of a "herniated disc" (radiation of pain, numbness, or tingling down the back of the leg or weakness in the leg) occur, you should be re-examined. Ibuprofen Ibuprofen is an excellent, safe drug for pain control. In addition, it has potent antiinflammatory effects which are beneficial, especially in the treatment of injuries, arthritis, or tendonitis. It's best to take ibuprofen with food. Persons with ulcer disease or allergy to aspirin should notify their physician of this before taking ibuprofen. Take the medication exactly as prescribed. Don't take additional doses unless instructed to do so by your doctor. If you develop wheezing, shortness of breath, hives, faintness, stomach pain, vomiting, or dark black stools, return for re-evaluation at once. Ice Packs Apply ice packs frequently against the painful area. Many different schedules are recommended, such as "20 minutes on, 20 minutes off" or "one hour ice, two hours rest." If you need to work, you may need to go longer between ice treatments. You should plan to have the area ice packed AT LEAST one fourth of the time. The ice should be applied over the wrap, tape, or splint, or over a layer of cloth -- not directly against the skin. Some ice bags have a built-in cloth and can be put directly on the skin. Muscle Relaxers Muscle relaxing medications are usually prescribed for acute muscle spasm or injury to the neck and back. They are often combined with antiinflammatory pain medication for increased relief. You may stop the muscle relaxer when the pain and stiffness have improved. Start the medication again if spasms recur. Muscle relaxers may cause drowsiness, especially with the first dose. Do not operate machinery or drive while under the effects of the medication. Most muscle relaxers last up to 24 hours. Do not combine the medication with alcohol. FOLLOW-UP CARE: If you have been referred to a physician for follow-up care, call the physician s office for an appointment as you were instructed or within the next two days. If you experience worsening or a significant change in your symptoms, notify the physician immediately or return to the Emergency Department at any time for re-evaluation. Prescriptions: Cyclobenzaprine HCl [Flexeril 10 mg Tablet] 10 mg PO TIDP PRN #7 tab PRN Reason: Forms: Elevated Blood Pressure, Smoking Cessation Education Referrals: SANTOS TOMAS PA-C [Primary Care Provider] - Follow up as needed
--- NOTE | 2016-11-18 19:59 | RADIOLOGY REPORT (SQ) ---
EXAM DESCRIPTION: VENOUS UNILATERAL UPPER COMPLETED DATE/TIME: 11/18/2016 7:40 pm REASON FOR STUDY: RUE PAIN COMPARISON: None. TECHNIQUE: Dynamic and static roman scale and color images acquired of the right arm venous system. S elected spectral images acquired with additional compression and augmentation maneuvers. The contrala teral subclavian vein and internal jugular vein were also imaged. Images stored on PACS. LIMITATIONS: None. FINDINGS: INTERNAL JUGULAR VEIN: Normal phasicity, compression, augmentation. No visualized echogeni c material on roman scale. No defects on color images. Comparison opposite side normal. SUBCLAVIAN VEIN: Normal compression, augmentation. No visualized echogenic material on roman scale. No defects on color images. AXILLARY VEIN: Normal compression, augmentation. No visualized echogenic material on roman scale. No d efects on color images. BRACHIAL VEIN: Normal compression, augmentation. No visualized echogenic material on roman scale. No d efects on color images. BASILIC VEIN: Normal compression, augmentation. No visualized echogenic material on roman scale. No de fects on color images. CEPHALIC VEIN: Normal compression, augmentation. No visualized echogenic material on roman scale. No d efects on color images. OTHER: No other significant finding. CONTRALATERAL SUBCLAVIAN VEIN AND INTERNAL JUGULAR VEIN: Normal phasicity, compression and augmentation. No visualized echogenic material on roman scale. No de fects on color images. IMPRESSION: NO EVIDENCE DVT OR SVT RIGHT ARM. TECHNICAL DOCUMENTATION: JOB ID: [id number] [employer]- All Rights Reserved
[2016-11-18] MEDS ORDERED: LIDOCAINE 5% (700 MG) TRANSDERMAL ADH..PATCH TP ONE (20:33)
[2016-11-18 22:26] VITALS: BP 112/69
== END 2016-11-18 20:43 | disposition home or self-care (01) ==
LOC: ER 16:17
DX: G89.29 Other chronic pain (principal); M54.41 Lumbago with sciatica, right side; M25.531 Pain in right wrist; G56.01 Carpal tunnel syndrome, right upper limb; M47.9 Spondylosis, unspecified; E10.9 Type 1 diabetes mellitus without complications; F17.210 Nicotine dependence, cigarettes, uncomplicated; Z71.6 Tobacco abuse counseling
CPT/HCPCS: 99283; 93971; J3490

== ENCOUNTER → 2016-12-14 | Outpatient (CLI) | payer MEDICAID ==
--- NOTE | 2016-12-14 11:31 | RADIOLOGY REPORT (SQ) ---
EXAM DESCRIPTION: C SP 4 OR 5 VIEWS COMPLETED DATE/TIME: 12/14/2016 11:21 am REASON FOR STUDY: CERVICALGIA M54.2 CERVICALGIA COMPARISON: 04/12/2016. NUMBER OF VIEWS: Five views. TECHNIQUE: AP, lateral, obliques and odontoid radiographic images acquired of the cervical spine. LIMITATIONS: None. FINDINGS: MINERALIZATION: Normal. ALIGNMENT: Anatomic. VERTEBRAE: Vertebral bodies of normal height. DISCS: No significant osteophytes or sclerosis. Disc height maintained. FORAMINA: No osteophytes or foraminal narrowing. LATERAL AND POSTERIOR ELEMENTS: Facets, lateral masses and spinous processes without significant find ings. HARDWARE: None in the spine. SOFT TISSUES: No masses or calcifications. Lung apices clear. OTHER: No other significant finding. IMPRESSION: NO SIGNIFICANT RADIOGRAPHIC FINDING IN THE CERVICAL SPINE. TECHNICAL DOCUMENTATION: JOB ID: [id number] [employer]- All Rights Reserved
== END ==
LOC: OD 10:54
PROVIDERS: ATTEND Physician Assistant
DX: M54.2 Cervicalgia (principal)
CPT/HCPCS: 72050

== ENCOUNTER 2017-08-15 10:18 | Emergency (ER) | payer MEDICAID ==
[2017-08-15] MEDS ORDERED: MECLIZINE HCL 25 MG TABLET PO ONE (11:05)
--- NOTE | 2017-08-15 11:06 | ER Document Report ---
ED Medical Screen (RME) - General Chief Complaint: Vertigo Stated Complaint: DIZZY Time Seen by Provider: 08/15/17 11:04 Notes: RAPID MEDICAL EVALUATION DISCLOSURE I have seen this patient as part of a Rapid Medical Evaluation and, if applicable, placed any initially appropriate orders. The patient will be seen and fully evaluated, including a full history and physical exam, by a provider ( in Main ED or Fast Track) when a room becomes available. 32-year-old female PMH chronic vertigo and ear pain here with complaints of acutely worsened symptoms as of waking up this morning. She felt as though the room was spinning but also felt lightheaded and was having some back pain as well as a feeling that the left side of her body was "heavy and tight". The symptoms have been ongoing for at least 5 years now, she reports. She has been taking meclizine for the vertigo and "it does help some". TRAVEL OUTSIDE OF THE [place] IN LAST 30 DAYS: No - Related Data Allergies/Adverse Reactions: Prostaglandins E1 Adverse Reaction (Intermediate, Verified 11/18/16 16:25) Generalized rash Prostaglandins E2 Adverse Reaction (Intermediate, Verified 11/18/16 16:25) Generalized rash Prostaglandins F2a Adverse Reaction (Intermediate, Verified 11/18/16 16:25) Generalized rash Sulfa (Sulfonamide Antibiotics) Adverse Reaction (Intermediate, Verified 16:25) Generalized rash sulfamethoxazole [From Bactrim] Adverse Reaction (Intermediate, Verified 16:25) Generalized rash trimethoprim [From Bactrim] Adverse Reaction (Intermediate, Verified 11/18/16 16 :25) Generalized rash Past Medical History - Past Medical History Cardiac Medical History: Reports: Hx Hypercholesterolemia Endocrine Medical History: Reports: Hx Diabetes Mellitus Type 1 Renal/ Medical History: Denies: Hx Peritoneal Dialysis Musculoskeltal Medical History: Reports Hx Arthritis, Reports Hx Musculoskeletal Deformity - Degenerative disc sciatica chronic back pain spondylosis carpal tunnel, Reports Hx Musculoskeletal Trauma Psychiatric Medical History: Reports: Hx Anxiety, Hx Depression Past Surgical History: Reports: Hx Adenoidectomy, Hx Gynecologic Surgery - E sure, Hx Oral Surgery - [place] teeth, Hx Tonsillectomy - Immunizations Immunizations up to date: Yes Hx Diphtheria, Pertussis, Tetanus Vaccination: Yes Physical Exam - Vital signs Vitals: Temp Pulse Resp BP Pulse Ox 98.0 F 70 18 112/72 99 08/15/17 10:24 08/15/17 10:24 08/15/17 10:24 08/15/17 10:24 08/15/17 10:24 Course - Vital Signs Vital signs: Temp Pulse Resp BP Pulse Ox 98.0 F 70 18 112/72 99 08/15/17 10:24 08/15/17 10:24 08/15/17 10:24 08/15/17 10:24 08/15/17 10:24 Doctor's Discharge - Discharge Referrals: JANET PAIZ NP [Primary Care Provider] - Follow up as needed
[2017-08-15 11:41] LABS: ABSOLUTE BASOPHILS # (AUTO) 0.1 10^3/uL (0.0-0.2); ABSOLUTE EOSINOPHILS # (AUTO) 0.6 10^3/uL (0.0-0.6); ABSOLUTE LYMPHOCYTES (AUTO) 3.9 10^3/uL (0.5-4.7); ABSOLUTE MONOCYTES (AUTO) 0.6 10^3/uL (0.1-1.4); ABSOLUTE NEUT (AUTO) 4.1 10^3/uL (1.7-8.2); EOSINOPHILS % (AUTO) 6.1 % (0-6); HEMATOCRIT 44.7 % (36.0-47.0); HEMOGLOBIN 14.6 g/dL (12.0-15.5); LYMPHOCYTES % (AUTO) 42.4 % (13-45); MEAN CORPUSCULAR HEMOGLOBIN 24.4 pg (27.0-33.4); MEAN CORPUSCULAR HGB CONC 32.7 g/dL (32.0-36.0); MEAN CORPUSCULAR VOLUME 75 fl (80-97); MONOCYTES % (AUTO) 6.2 % (3-13); PLATELET COUNT 263 10^3/uL (150-450); RED BLOOD COUNT 5.98 10^6/uL (3.72-5.28); RED CELL DISTRIBUTION WIDTH 15.5 % (11.5-14.0); SEGMENTED NEUTROPHILS % (AUTO) 44.3 % (42-78); TOTAL CELLS COUNTED % (AUTO) 100 %; WHITE BLOOD COUNT 9.1 10^3/uL (4.0-10.5)
[2017-08-15 12:02] LABS: ANION GAP 10 (5-19); BLOOD UREA NITROGEN 15 mg/dL (7-20); CARBON DIOXIDE 24 mmol/L (22-30); CHLORIDE 101 mmol/L (98-107); GLUCOSE 316 mg/dL (75-110); PHOSPHORUS 4.1 mg/dL (2.5-4.5); POTASSIUM 4.6 mmol/L (3.6-5.0); SODIUM 134.9 mmol/L (137-145)
--- NOTE | 2017-08-15 12:08 | ER Document Report ---
ED ENT - General Chief Complaint: Vertigo Stated Complaint: DIZZY Time Seen by Provider: 08/15/17 11:04 Mode of Arrival: Ambulatory Information source: Patient Notes: Patient is a 32-year-old female who presents to the ER today for dizziness, like the room is spinning, vertigo has been diagnosed by her primary care provider and she has a history of vertigo 3 times before in her life. States that the dizziness gets worse when she looks to the right or sits up or lays down. She is on meclizine for this which she states helps. Her primary care provider saw her yesterday, gave her more meclizine and told her she had fluid behind both of her ears. She does admit to ringing of the ears. She denies any runny nose, sore throat, cough, fevers, chills or other symptoms. Patient also complains of right lower back pain radiating pain down the right leg to her foot. She denies any numbness or tingling, loss of bladder or bowel function, injury. Patient has a history of low back pain and sciatica for which she takes Soma for. Patient states that this has not been helping. TRAVEL OUTSIDE OF THE [place] IN LAST 30 DAYS: No - Related Data Allergies/Adverse Reactions: Prostaglandins E1 Adverse Reaction (Intermediate, Verified 08/15/17 11:07) Generalized rash Prostaglandins E2 Adverse Reaction (Intermediate, Verified 08/15/17 11:07) Generalized rash Prostaglandins F2a Adverse Reaction (Intermediate, Verified 08/15/17 11:07) Generalized rash Sulfa (Sulfonamide Antibiotics) Adverse Reaction (Intermediate, Verified 11:07) Generalized rash sulfamethoxazole [From Bactrim] Adverse Reaction (Intermediate, Verified 11:07) Generalized rash trimethoprim [From Bactrim] Adverse Reaction (Intermediate, Verified 08/15/17 11 :07) Generalized rash Past Medical History - General Information source: Patient - Social History Smoking Status: Current Every Day Smoker Chew tobacco use (# tins/day): No Frequency of alcohol use: None Drug Abuse: None Family History: DM, Hyperlipidemia, Hypertension, Malignancy, Thyroid Disfunction. denies: Arthritis, CAD, COPD, CVA Patient has suicidal ideation: No Patient has homicidal ideation: No - Past Medical History Cardiac Medical History: Reports: Hx Hypercholesterolemia Endocrine Medical History: Reports: Hx Diabetes Mellitus Type 1 Renal/ Medical History: Denies: Hx Peritoneal Dialysis Musculoskeltal Medical History: Reports Hx Arthritis, Reports Hx Musculoskeletal Deformity - Degenerative disc sciatica chronic back pain spondylosis carpal tunnel, Reports Hx Musculoskeletal Trauma Psychiatric Medical History: Reports: Hx Anxiety, Hx Depression Past Surgical History: Reports: Hx Adenoidectomy, Hx Gynecologic Surgery - E sure, Hx Oral Surgery - [place] teeth, Hx Tonsillectomy - Immunizations Immunizations up to date: Yes Hx Diphtheria, Pertussis, Tetanus Vaccination: Yes Review of Systems - Review of Systems Constitutional: See HPI EENT: See HPI Cardiovascular: No symptoms reported Respiratory: No symptoms reported Gastrointestinal: No symptoms reported Genitourinary: No symptoms reported Female Genitourinary: No symptoms reported Musculoskeletal: See HPI Skin: No symptoms reported Hematologic/Lymphatic: No symptoms reported Neurological/Psychological: No symptoms reported Physical Exam - Vital signs Vitals: Temp Pulse Resp BP Pulse Ox 98.0 F 70 18 112/72 99 08/15/17 10:24 08/15/17 10:24 08/15/17 10:24 08/15/17 10:24 08/15/17 10:24 - Notes Notes: PHYSICAL EXAMINATION: GENERAL: Well-appearing and in no acute distress. HEAD: Atraumatic, normocephalic. EYES: No nystagmus noted, Pupils equal round and reactive to light, extraocular movements intact, sclera anicteric, conjunctiva are normal. ENT: ear canals without erythema or foreign body, right TM with air-fluid levels behind, left TM pearly szymanski with good bony landmarks, nares patent, oropharynx clear without exudates. Moist mucous membranes. NECK: Normal range of motion, supple without lymphadenopathy LUNGS: CTAB and equal. No wheezes rales or rhonchi. HEART: Regular rate and rhythm without murmurs ABDOMEN: Soft, no tenderness. No guarding, no rebound BACK: no vertebral tenderness, decreased range of motion secondary to lower back pain GI/: no CVA tenderness EXTREMITIES: Normal range of motion, no pitting edema. No cyanosis. NEUROLOGICAL: Cranial nerves grossly intact. Normal sensory/motor exams. PSYCH: Normal mood, normal affect. SKIN: Warm, Dry, normal turgor, no rashes or lesions noted Course - Re-evaluation Re-evalutation: 08/15/17 18:46 Patient is a diabetic so I will not put her on oral steroids, will however provide her with Flonase for the fluid behind her right ear and placed her on hydrochlorothiazide for the ringing in her ears, possible Mnire's, I do advise that she continue her meclizine that she was given more of yesterday. We will also provide her with baclofen instead of the soma that she is currently taking for her chronic sciatica pain. - Vital Signs Vital signs: Temp Pulse Resp BP Pulse Ox 98.7 F 64 18 107/67 100 08/15/17 12:15 08/15/17 12:15 08/15/17 12:15 08/15/17 12:15 08/15/17 12:15 - Laboratory Result Diagrams: 08/15/17 11:19 08/15/17 11:19 Laboratory results interpreted by me: 08/15/17 08/15/17 11:19 11:19 RBC 5.98 H MCV 75 L MCH 24.4 L RDW 15.5 H Eosinophils % 6.1 H Sodium 134.9 L Glucose 316 H Discharge - Discharge Clinical Impression: Sciatica, right side, Vertigo Condition: Stable Disposition: HOME, SELF-CARE Additional Instructions: Return immediately for any new or worsening symptoms. Follow up with primary care provider, call tomorrow to make followup appointment. Prescriptions: Baclofen [Baclofen 20 Mg Tablet] 20 mg PO BID #30 tablet Fluticasone Propionate [Flonase Nasal [place] 50 Mcg/[place] 16 gm] 2 spray NASL Q12 #1 inhaler Hydrochlorothiazide 12.5 mg PO BID #30 capsule Referrals: JANET PAIZ NP [NURSE PRACTITIONER] - Follow up as needed
[2017-08-15] MEDS ORDERED: KETOROLAC TROMETHAMINE 60 MG/2 ML SDV IM ONE (12:16)
[2017-08-15 12:23] VITALS: BP 107/67
== END 2017-08-15 12:40 | disposition home or self-care (01) ==
LOC: ER 10:18
DX: R42 Dizziness and giddiness (principal); H93.13 Tinnitus, bilateral; M54.41 Lumbago with sciatica, right side; G89.29 Other chronic pain; Z79.899 Other long term (current) drug therapy; E10.9 Type 1 diabetes mellitus without complications; F17.200 Nicotine dependence, unspecified, uncomplicated
CPT/HCPCS: 99283; 96372; 36415; 83735; 84100; 85025; 81025; 80048; J1885